=== PATIENT | female | born 1995 | race Caucasian/White ===

== ENCOUNTER 2017-04-19 11:11 | Emergency (ER) | payer OTHER ==
[~2017-04-19] VITALS: Ht 162.6 cm; Wt 67.0 kg
[2017-04-19 11:13] VITALS: Ht 162.6 cm; Wt 67.0 kg
[2017-04-19] MEDS ORDERED: IBUPROFEN 800 MG TAB PO ONE (12:00)
[2017-04-19] MEDS ORDERED: LIDOCAINE 1% (MDV) 20 ML INJ SC ONE (12:00)
--- NOTE | 2017-04-19 12:16 | ERD ---
ER Documentation Chief Complaint Chief Complaint left forearm lac with a knife at work HPI This is a 21-year-old female who presents to the emergency department today complaining of a laceration on her left forearm. Patient states that she works at [employer] and had just sharp in the knife and was cutting cilantro when she brought the knife up and accidentally cut her forearm. States that she was sent here by her work. States that she thinks her tetanus is updated. Denies any fevers or chills or previous trauma ROS All systems reviewed and are negative except as per history of present illness. Medications Home Meds Active Scripts Cephalexin* (Keflex*) 500 Mg Capsule, 500 MG PO QID for 7 Days, CAP Prov:DIPTI KO PA-C 04/19/17 Ibuprofen* (Motrin*) 600 Mg Tab, 600 MG PO Q6, #30 TAB Prov:DIPTI KO PA-C 04/19/17 Allergies Allergies: Coded Allergies: No Known Allergy (Unverified , 04/19/17) PMhx/Soc Medical and Surgical Hx: pt denies Medical Hx, pt denies Surgical Hx Hx Alcohol Use: No Hx Substance Use: No Hx Tobacco Use: No Smoking Status: Never smoker Physical Exam Vitals Vital Signs Date Time Temp Pulse Resp B/P Pulse Ox O2 Delivery O2 Flow Rate FiO2 04/19/17 11:13 98.6 64 18 110/73 100 Physical Exam Const: NAD Head: Atraumatic Eyes: Normal Conjunctiva ENT: Normal External Ears, Nose and Mouth. Neck: Full range of motion..~ No meningismus. Resp: Clear to auscultation bilaterally Cardio: Regular rate and rhythm, no murmurs Abd: Soft, non tender, non distended. Normal bowel sounds Skin: 3 centimeter laceration left forearm volar aspect. Full active range of motion wrist and elbow. Pulses 2+. Distal neurovascularly intact. Back: No midline or flank tenderness Ext: No cyanosis, or edema Neur: Awake and alert Psych: Normal Mood and Affect Results 24 hrs Current Medications Medications (Trade) Dose Ordered Sig/Vianey Route PRN Reason Start Time Stop Time Status Last Admin Dose Admin Lidocaine (Xylocaine 1% (Mdv) 20 ml) 20 ml ONCE ONCE SC 04/19/17 12:00 04/19/17 12:06 DC Ibuprofen (Motrin) 800 mg ONCE ONCE PO 04/19/17 12:00 04/19/17 12:06 DC 04/19/17 12:04 Procedures/MDM This is a 21-year-old female who presents the emergency department today for a laceration she sustained with a knife while cutting some cilantro at work. Patient has a 3 cm laceration that I do not feel would close well with Dermabond and explained the risks and benefits of using sutures to the patient the patient agreed to proceed. Stated that she was up-to-date on her tetanus and declined a tetanus vaccine. She is afebrile and otherwise well-appearing. The wound is superficial however it is a little bit wide. I do not feel that she requires imaging at this time. Low suspicion for acute fracture dislocation. Laceration Repair by me: Anesthesia: 1% lidocaine locally 3 cc Location: left forearm Tendon/Joint/Nerves: No injury Foreign body: None detected after copious irrigation and exploration Technique: 7 Simple Interrupted Sutures using 5-0 nylon Complexity: No subcutaneous sutures/mucosal repair/ edge excision Post Closure Length: 3 cm Patient's bleeding was easily controlled in the department and there is no indication of anemia. No evidence of compartment syndrome, neurologic injury, vascular injury, open joint, tendon laceration, or foreign body. Patient is appropriate for outpatient follow up. 48 hour wound check. Scar minimization instructions given. Patient was given Motrin here in the emergency department. She will be given a prescription for Motrin and Keflex for home. She was instructed return in 48 hours for wound check and again in 7-10 days for suture removal. At this time the patient is stable for discharge and outpatient management. Patient should follow up with their PCP in the next 1-2 days. They may return to the emergency department sooner for any persistent or worsening of symptoms. Patient understood and agreed with the plan. Departure Diagnosis: Primary Impression: Laceration Condition: Fair DIPTI KO PA-C Apr 19, 2017 12:16
[2017-04-19] MEDS ORDERED: IBUP-1542 PO (13:14)
[2017-04-19] MEDS ORDERED: CEPH-443 PO (13:14)
== END 2017-04-19 13:30 | disposition home or self-care (01) ==
LOC: FTE 11:11
DX: S51.812A Laceration without foreign body of left forearm, initial encounter (principal); W26.0XXA Contact with knife, initial encounter; Y92.89 Other specified places as the place of occurrence of the external cause

== ENCOUNTER 2017-04-21 16:41 | Emergency (ER) | payer SELFPAY ==
[~2017-04-21] VITALS: Wt 67.1 kg
[~2017-04-21 16:41] MED LIST: CEPH-443 PO; IBUP-1542 PO
== END 2017-04-21 19:05 | disposition left against medical advice (07) ==
LOC: FTE 16:41
DX: Z53.21 Procedure and treatment not carried out due to patient leaving prior to being seen by health care provider (principal)

== ENCOUNTER 2017-04-30 16:28 | Emergency (ER) | payer SELFPAY ==
[~2017-04-30] VITALS: Ht 162.6 cm; Wt 66.1 kg
[2017-04-30 16:30] VITALS: Ht 162.6 cm; Wt 66.1 kg
--- NOTE | 2017-04-30 17:04 | ERD ---
ER Documentation Chief Complaint Chief Complaint CAME FOR SUTURE REMOVAL FROM LEFT FA PLAED IN 10 DAYS AGO HPI Patient is a 21-year-old female presenting to the emergency department for suture removal from her left forearm. She denies complaints currently. ROS All systems reviewed and are negative except as per history of present illness. Medications Home Meds Active Scripts Cephalexin* (Keflex*) 500 Mg Capsule, 500 MG PO QID for 7 Days, CAP Prov:DIPTI KO PA-C 04/19/17 Ibuprofen* (Motrin*) 600 Mg Tab, 600 MG PO Q6, #30 TAB Prov:DIPTI KO PA-C 04/19/17 Allergies Allergies: Coded Allergies: No Known Allergy (Unverified , 04/19/17) PMhx/Soc Medical and Surgical Hx: pt denies Medical Hx, pt denies Surgical Hx Hx Alcohol Use: No Hx Substance Use: No Hx Tobacco Use: No Smoking Status: Never smoker Physical Exam Vitals Vital Signs Date Time Temp Pulse Resp B/P Pulse Ox O2 Delivery O2 Flow Rate FiO2 04/30/17 16:30 97.8 71 18 117/62 100 Physical Exam Const: Well-appearing female in no acute distress. Head: Atraumatic Eyes: Normal Conjunctiva Ext: [address] over a well-healed laceration of the left forearm. Neur: Awake and alert Psych: Normal Mood and Affect Procedures/MDM Suture Removal by me: Sutures removed with tweezers and scissors without incident. Wound shows no evidence of infection, foreign body, neurologic injury, vascular injury, open joint or tendon laceration. Patient to follow up PRN. Departure Diagnosis: Primary Impression: Encounter for removal of sutures Condition: Fair Patient Instructions: Suture Removal, No Complication Additional Instructions: Call your primary care doctor TOMORROW for an appointment during the next 1 WEEK.Tell the admin secretary that you were referred from this facility.See the doctor sooner or return here if your condition worsens before your appointment time. SULEMAN GALLARDO PA-C Apr 30, 2017 17:03
== END 2017-04-30 17:15 | disposition home or self-care (01) ==
LOC: FTE 16:28
DX: Z48.02 Encounter for removal of sutures (principal)
CPT/HCPCS: 99281

== ENCOUNTER 2018-11-13 12:32 | Emergency (ER) | payer OTHER ==
[~2018-11-13] VITALS: Ht 162.6 cm; Wt 65.3 kg
[2018-11-13 12:36] VITALS: BP 122/67; PULSE 74; RESP 18; Ht 162.6 cm; Wt 65.3 kg
[2018-11-13] MEDS ORDERED: TIZANIDINE 4 MG TAB PO ONE (13:30)
--- NOTE | 2018-11-13 13:32 | ERD ---
ER Documentation Chief Complaint Chief Complaint back pain s/p slip and turned on side @ work HPI 22 years old female accompanied by her mother with no known past medical history presenting to the clinic for low back pain since November 11, 2018. 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 States that she started experiencing excruciating pain and was able to continue her job. Patient states that she feels stiff and pain is worsened when she is driving or lying down. Patient rates her pain as 7 out of 10 and reports using ibuprofen with mild improvement. She denies being and reports her last menstrual cycle was on October 14. ROS All systems reviewed and are negative except as per history of present illness. Medications Home Meds Active Scripts Ibuprofen* (Ibuprofen*) 800 Mg Tab, 800 MG PO TID for 7 Days, #21 TAB Prov:KAROL MARSHALL PA-C 11/13/18 Tizanidine Hcl* (Tizanidine Hcl*) 4 Mg Capsule, 4 MG PO Q8H PRN for SPASTICITY for 7 Days, #21 CAP Prov:KAROL MARSHALL PA-C 11/13/18 Cephalexin* (Keflex*) 500 Mg Capsule, 500 MG PO QID for 7 Days, CAP Prov:DIPTI KO PA-C 04/19/17 Ibuprofen* (Motrin*) 600 Mg Tab, 600 MG PO Q6, #30 TAB Prov:DIPTI KO PA-C 04/19/17 Allergies Allergies: Coded Allergies: No Known Allergy (Unverified , 04/19/17) PMhx/Soc Patient reports right hand surgery for tissue removal (benign mass). Medical and Surgical Hx: pt denies Medical Hx History of Surgery: Yes Anesthesia Reaction: No Hx Neurological Disorder: No Hx Respiratory Disorders: No Hx Cardiac Disorders: No Hx Psychiatric Problems: No Hx Miscellaneous Medical Probl: No Hx Alcohol Use: No Hx Substance Use: No Hx Tobacco Use: No Smoking Status: Never smoker FmHx Mother has asthma Physical Exam Vitals Vital Signs Date Temp Pulse Resp B/P (MAP) Pulse Ox O2 O2 Flow FiO2 Time Delivery Rate 11/13/18 98.1 74 18 122/67 99 12:36 (85) Physical Exam Const: No acute distress Head: Atraumatic Eyes: Normal Conjunctiva Abd: Soft, non tender, non distended. Normal bowel sounds Skin: No petechiae or rashes Back: Low back tenderness without any obvious signs of trauma or injury. Paravertebral muscle spasm. Ext: No cyanosis, or edema Neur: Awake and alert Psych: Normal Mood and Affect Results 24 hrs Laboratory Tests Test 11/13/18 13:39 POC Beta HCG, Qualitative NEGATIVE Current Medications Medications Dose Sig/Vianey Start Time Status Last (Trade) Ordered Route PRN Stop Time Admin Dose Reason Admin Ketorolac 30 mg ONCE STAT 11/13/18 DC Tromethamine IM 13:21 (Toradol) 11/13/18 13:25 Tizanidine 4 mg ONCE ONCE 11/13/18 DC 11/13/18 HCl PO 13:30 13:45 (Zanaflex) 11/13/18 13:31 Procedures/MDM Patient was evaluated for low back injury is most significant for muscle spasm. Patient was treated in in hospital with tizanidine and Toradol IM resolution of symptoms. Patient denied trigger point injection. Patient requested lumbar x-ray she was afraid of possible fractures. Lumbar x- ray revealed no significant abnormalities is grossly unremarkable. Patient is stable and ready for discharge. Patient will be excused from work for 3 days. He was advised to use heat therapy at home. Patient will be discharged with tizanidine and ibuprofen. Patient was advised not to drive or operating heavy machinery while under the influence of tizanidine. Departure Diagnosis: Primary Impression: Spasm of muscle of lower back Condition: Stable Patient Instructions: Muscle Spasm Referrals: [facility] Additional Instructions: Patient advised to return to the ED immediately for new or worsening symptoms. Patient advised to follow up with primary care provider in the next 24-48 hours. Patient verbalized understanding and agrees with treatment plan and course of action. If patient has no primary care they may follow up with [facility] [address] [place] [id number] or [facility] [id number] [place] [address] or [facility] [address] [place] [address] KAROL MARSHALL PA-C November 13, 2018 13:32
[2018-11-13] MEDS: KETOROLAC 30 MG INJ IM STA ×2 (13:45→13:46)
[2018-11-13] MEDS ORDERED: TIZA4CAP6 PO (15:01)
[2018-11-13] MEDS ORDERED: IBUP-1545 PO (15:01)
== END 2018-11-13 15:07 | disposition home or self-care (01) ==
LOC: FTE 12:32
DX: M54.5 Low back pain (principal)
CPT/HCPCS: 72100; 81025; J1885